=== PATIENT | male | born 1960 | race Caucasian/White ===

== ENCOUNTER → 2016-03-07 | Outpatient (CLI) | payer MEDICARE ==
[2016-03-07 11:07] VITALS: BP 135/74; PULSE 56; TEMP 98.2; BMI 36.8
== END | disposition home or self-care (01) ==
LOC: BARWHC3 09:51
PROVIDERS: ATTEND Surgery
DX: Z48.815 Encounter for surgical aftercare following surgery on the digestive system (principal); R13.10 Dysphagia, unspecified; Z98.84 Bariatric surgery status
CPT/HCPCS: 74220; 99201; 99202

== ENCOUNTER → 2016-03-07 | Outpatient (CLI) | payer MEDICARE ==
--- NOTE | 2016-03-07 10:06 | FL ---
EXAMINATION TYPE: FL barium swallow DATE OF EXAM: 03/07/2016 9:49 AM COMPARISON: NONE HISTORY: Dysphasia sticking in the epigastric region, burning and distal esophagus TECHNIQUE: Single contrast esophagram with attention to the LAP-BAND FINDINGS: There is moderate hesitancy of contrast passing to the level of lap band. Severe complete o bstruction is not identified. Lap band position appears normal. There appear to be some narrowing of the duodenum on images obtained near the end of the examination. Slight delay however demonstrates op ening of the duodenum. The stomach is otherwise not evaluated. IMPRESSION: 1. Narrowing through the level of the lap band with moderate hesitancy. Patient indicates this is of the level of discomfort which had symptoms produced during passage of contrast. No complete obstructi on is evident.
--- NOTE | 2016-03-07 12:23 | P.BASOAP ---
Subjective Principal diagnosis: Dysphagia Patient has had increased complaints of dysphagia recently. Mild abdominal discomfort at times. He has not been seen in the bariatric clinic for many years. At his last visit it appears that he had 2.8 mL of fluid in his band. Today's upper GI shows mild hesitancy at the band site. No prolapse or erosion seen. There is some slow passage through the duodenum as well. Objective - Exam Abdomen: Soft, nontender, nondistended Assessment/Plan (1) Dysphagia Narrative/Plan: The patient I discussed the esophagram results. Recommend upper endoscopy back home. The band will be loosened at this time. Follow-up in the clinic in 1-2 months.The patient's lap band port was palpated. The site was aseptically prepped. 1% lidocaine was infiltrated into the subcutaneous tissues through a diabetic syringe. The Ponce needle was advanced into the port. Aspiration took place. A total of 1 ml of fluid was evacuated. Pressure was held and a sterile dressing was applied. Plan: Date: Initial Weight: Initial BMI: Current Weight: Current BMI: Type of Surgery: Total Volume in Band: Previous Volume: Volume Removed: Volume Added: Band Size:
== END | disposition home or self-care (01) ==
LOC: RADFLWHC 09:02
PROVIDERS: ATTEND Surgery
DX: R13.10 Dysphagia, unspecified (principal); K22.2 Esophageal obstruction
CPT/HCPCS: 74220

== ENCOUNTER 2016-06-17 06:44 | Inpatient (IN) | payer MEDICARE ==
[2016-06-13 15:20] VITALS: BMI 36.6
[~2016-06-17 06:44] MED LIST: DEXAMETHASONE SOD PHOSPHATE 10 MG/ML 1 ML VIAL IV ONE; ENOXAPARIN 40 MG/0.4 ML SYRINGE SQ ONE; LACTATED RINGERS 1,000 ML IV SCH; LIDOCAINE 1% 20 ML VIAL (10MG/ML) FOR IV START INTRADERMA PRN; MIDAZOLAM 2 MG/2 ML VIAL IV PRN; ONDANSETRON 4 MG/2 ML VIAL IVP ONE; SCOPOLAMINE 1.5MG/72HR PATCH TRANSDERM ONE; ceFAZolin 2 GM in SODIUM CHLORIDE 0.9% 100 ML IVPB ONE
--- NOTE | 2016-06-17 08:49 | P.GSHP ---
History of Present Illness H&P Date: 06/17/16 Chief Complaint: Band intolerance, abdominal pain Patient here today with complaints of worsening abdominal pain. His pain is mostly at his upper abdominal port site from his previous lap band. He has chronic reflux and intermittent episodes of vomiting. The patient I discussed the options and have decided to take his band out at this point. He did have initially good success with weight loss but lately has gained weight back despite the band in place. Past Medical History Past Medical History: Coronary Artery Disease (CAD), Hyperlipidemia, Hypertension, Myocardial Infarction (non Q-wave), Osteoarthritis (OA) Additional Past Medical History / Comment(s): ARTHRITIS KNEES- USES CANE PRN. Last Myocardial Infarction Date:: 1997 History of Any Multi-Drug Resistant Organisms: None Reported Past Surgical History: Bariatric Surgery, Heart Catheterization, Hernia Repair Additional Past Surgical History / Comment(s): heart cath 1997 ,lapband surgery 2003, umbilical hernia repair 2004 Past Anesthesia/Blood Transfusion Reactions: No Reported Reaction, Motion Sickness Additional Past Anesthesia/Blood Transfusion Reaction / Comment(s): STATES VERY ANXIOUS WHEN HE COMES FOR SURGERY- LEFT HOSPITAL PRIOR TO SURGERY DUE TO ANXIETY. Past Psychological History: Anxiety, Depression Smoking Status: Never smoker Past Alcohol Use History: Rare Past Drug Use History: None Reported - Past Family History Father Family Medical History: Cancer Additional Family Medical History / Comment(s): MESOTHELIOMA Medications and Allergies Home Medications Medication Instructions Recorded Confirmed Type Aspirin 81 mg PO DAILY 03/07/16 06/13/16 History Atenolol 100 tab PO DAILY 03/07/16 06/13/16 History Cholecalciferol [Vitamin D3] 5,000 tab PO DAILY 03/07/16 06/13/16 History FLUoxetine HCL [PROzac] 80 tab PO DAILY 03/07/16 06/13/16 History Hydrochlorothiazide 12.5 tab PO DAILY 03/07/16 06/13/16 History Potassium Chloride [Klor-Con 10] 10 meq PO DAILY 03/07/16 06/13/16 History Simvastatin [Zocor] 40 mg PO DAILY 03/07/16 06/13/16 History hydrALAZINE HCL [Apresoline] 50 tab PO BID 03/07/16 06/13/16 History ALPRAZolam [Xanax] 0.25 mg PO BID PRN 06/13/16 06/13/16 History Dicyclomine [Bentyl] 20 mg PO QID PRN 06/13/16 06/13/16 History Losartan Potassium [Cozaar] 100 mg PO DAILY 06/13/16 06/13/16 History Naproxen Sodium [Aleve] 220 mg PO BID PRN 06/13/16 06/13/16 History Omeprazole [PriLOSEC] 20 mg PO AC-BRKFST 06/13/16 06/13/16 History Allergies Allergy/AdvReac Type Severity Reaction Status Date / Time No Known Allergies Allergy Verified 06/13/16 14:50 Surgical - Exam Vital Signs Temp Pulse Resp BP Pulse Ox 98 F 59 L 18 135/71 99 06/17/16 08:19 06/17/16 08:19 06/17/16 08:19 06/17/16 08:19 06/17/16 08:19 Physical exam: General: Well-developed, well-nourished HEENT: Normocephalic, sclerae nonicteric Abdomen: Nontender, nondistended Extremities: No edema Neuro: Alert and oriented Assessment and Plan (1) Dysphagia Narrative/Plan: She will proceed with lap band removal. Risks of bleeding, infection, bowel injury, possible findings of gastric prolapse, hernia were discussed. He understands and wishes to proceed. Status: Acute
[2016-06-17 08:56] LABS: Basophils # (A) 0.1 k/uL (0-0.2); Basophils % (A) 1 %; CH 30.8; CHCM 33.6; Eosinophils # (A) 0.3 k/uL (0-0.7); Eosinophils % (A) 3 %; HCT 40.3 % (39.0-53.0); HDW 2.36; HGB 13.4 gm/dL (13.0-17.5); Luc # (Auto) 0.24; Luc % (Auto) 3; Lymphocytes # (A) 2.2 k/uL (1.0-4.8); Lymphocytes % (A) 27 %; MCH 30.6 pg (25.0-35.0); MCHC 33.2 g/dL (31.0-37.0); MCV 92.1 fL (80.0-100.0); Mean Platelet Volume 6.9; Monocytes # (A) 0.8 k/uL (0-1.0); Monocytes % (A) 10 %; Neutrophils # (A) 4.8 k/uL (1.3-7.7); Neutrophils % (A) 57 %; RBC 4.38 m/uL (4.30-5.90); RDW 13.1 % (11.5-15.5); WBC 8.4 k/uL (3.8-10.6)
[2016-06-17 09:16] LABS: Anion Gap 9 mmol/L; Blood Urea Nitrogen 30 mg/dL (9-20); Calcium 9.8 mg/dL (8.4-10.2); Carbon Dioxide 26 mmol/L (22-30); Chloride 106 mmol/L (98-107); Glucose 96 mg/dL (74-99); Non-African American GFR(MDRD) >60 (>60 ml/min/1.73 sqM); Potassium 4.5 mmol/L (3.5-5.1); Sodium 141 mmol/L (137-145)
[2016-06-17] MEDS ORDERED: PROPOFOL 10 MG/ML 20 ML VIAL IV ONE (09:25)
[2016-06-17] MEDS ORDERED: LIDOCAINE 1% INJ 10MG/ML (20 ML MDV) ONE (09:25)
[2016-06-17] MEDS ORDERED: BUPIVACAIN-EPI 0.25%-1:200,000 30 ML VIAL SQ ONE (09:25)
[2016-06-17] MEDS ORDERED: ROCURONIUM BROMIDE 10 MG/ML 10 ML VIAL IV ONE (09:25)
[2016-06-17] MEDS ORDERED: SUCCINYLCHOLINE CHLORIDE 100 MG/5 ML SYR IV ONE (09:25)
[2016-06-17] MEDS ORDERED: GLYCOPYRROLATE 0.2 MG/ML 2 ML VIAL ONE (09:25)
[2016-06-17] MEDS ORDERED: NEOSTIGMINE 1 MG/ML 10 ML VIAL ONE (09:25)
[2016-06-17] MEDS ORDERED: MIDAZOLAM 2 MG/2 ML VIAL ONE (09:25)
[2016-06-17] MEDS ORDERED: PHENYLEPHRINE-0.9% NACL SYG 1 MG/10 ML SYRINGE ONE (09:25)
[2016-06-17] MEDS ORDERED: fentaNYL (PF) 50 MCG/ML 2 ML AMP ONE (09:25)
[2016-06-17] MEDS ORDERED: ePHEDrine 50 MG/ML 1 ML AMP ONE (09:25)
[2016-06-17] MEDS ORDERED: LACTATED RINGERS 1,000 ML IV ONE (10:16)
[2016-06-17] MEDS ORDERED: ACETAMINOPHEN TAB 325 MG TAB PO PRN (10:47)
[2016-06-17] MEDS ORDERED: ONDANSETRON 4 MG/2 ML VIAL IVP PRN (10:47)
[2016-06-17] MEDS ORDERED: NALOXONE 0.4 MG/ML 1 ML VIAL IV PRN (10:47)
[2016-06-17] MEDS ORDERED: HYDROcodone/APAP 5-325MG 1 EACH TAB PO PRN (10:47)
--- NOTE | 2016-06-17 10:50 | P.PCN ---
Date of Procedure: 06/17/16 Procedure(s) Performed: PREOPERATIVE DIAGNOSIS: Band intolerance/abdominal pain POSTOPERATIVE DIAGNOSIS: Same PROCEDURE: Laparoscopic lap band removal SURGEON: Amanda EBL: Minimal ANESTHESIA: General COMPLICATIONS: None OPERATIVE PROCEDURE: The patient was brought and placed on the operating room table in the supine position. The patient was placed under general anesthesia at that time. The patient was then placed in lithotomy. The abdomen was prepped and draped in the usual sterile fashion. The previous port incision was localized and then incised using a scalpel. The port was easily excised using electrocautery. Entrance into the peritoneal cavity occurred using a 5 mm optical trocar through the old trocar entrance site. Insufflation took place to 15 mmHg. A right subxiphoid 5 mm trocar was placed. This was then removed and the medium Jose hook was used to elevate the left lobe of the liver anteriorly. An additional 5 mm trocar was placed under direct visualization in the left lateral upper quadrant. The original 5 mm trocar was switched to a 15 mm trocar. A additional 5 mm trocar was placed in the right upper quadrant under direct dilatation. There were adhesions to the band in the buccal that were lysed using both the LigaSure and electrocautery. The band was then cut using the laparoscopic sugey. The band was then removed easily in 2 portions through the 15 mm trocar site. The stomach itself was inspected and revealed no evidence of erosion or prolapse. The trochars were removed. The fascia at the 15 mm site was closed using a [id number] 0 Vicryl stitch. The subcutaneous tissues at the port site was closed using a 3- 0 Vicryl suture. The skin at all 4 incision sites were closed using 4-0 Monocryl sutures. Steri-Strips and sterile dressings were then applied. DISPOSITION: Stable to recovery room
[2016-06-17] MEDS: HYDROmorphone 1 MG/ML 1 ML SYRINGE IVP PRN ×4 (11:05→21:04)
[2016-06-17] MEDS: D5-0.45% NACL WITH KCL 20MEQ/L 1,000 ML IV SCH ×2 (13:20→21:05)
[2016-06-17] MEDS ORDERED: ALPRAZolam 0.25 MG TAB PO PRN (15:03)
[2016-06-17] MEDS: HEPARIN SODIUM,PORCINE 5,000 UNIT/ML 1 ML VIAL SQ SCH ×2 (16:30→23:37)
--- NOTE | 2016-06-17 17:19 | CONS ---
DATE OF CONSULTATION: REASON FOR CONSULTATION: Recommendations regarding antihypertensive medications and perioperative complication management. Patient is a pleasant 56-year-old gentleman who was admitted for lap band removal, as he did not tolerate the procedure very well. Patient was having dysphagia. Patient underwent the procedure and I saw him postoperatively. Patient denied any fever or chills, nausea or vomiting, dysuria. REVIEW OF SYSTEMS: CONSTITUTIONAL: No fever, no malaise, no fatigue. HEENT: No recent visual problems or hearing problems. Denied any sore throat. CARDIOVASCULAR: No chest pain, orthopnea, PND, no palpitations, no syncope. PULMONARY: No shortness of breath, no cough, no hemoptysis. GASTROINTESTINAL: No diarrhea, no nausea, no vomiting, no abdominal pain. Normoactive bowel sounds. NEUROLOGICAL: No headaches, no weakness, no numbness. HEMATOLOGICAL: Denies any bleeding or petechiae. GENITOURINARY: Denies any burning micturition, frequency, or urgency. MUSCULOSKELETAL/RHEUMATOLOGICAL: Denies any joint pain, swelling, or any muscle pain. ENDOCRINE: Denies any polyuria or polydipsia. The rest of the 14 point review of systems is negative. Home medications include: 1. Hydralazine. 2. Simvastatin. 3. Potassium chloride. 4. Prilosec. 5. Naproxen. 6. Losartan hydrochlorothiazide. 7. Fluoxetine. 8. Dicyclomine. 9. Cholecalciferol. 10. Atenolol. 11. Aspirin. 12. Alprazolam. 13. Hydrocodone/acetaminophen. Past medical history is significant for: 1. Coronary artery disease. 2. Hyperlipidemia. 3. Hypertension. 4. Myocardial infarction in the past. 5. Osteoarthritis. 6. Bariatric surgery. 7. Hernia repair. 8. Motion sickness. 9. Anxiety. 10. Depression. SOCIAL HISTORY: Mesothelioma in the family. PHYSICAL EXAMINATION: VITAL SIGNS: Temperature 98.4, pulse of 71, respiratory rate of 15. Blood pressure is 121/85. Saturating at 99% on 2 L of oxygen by nasal cannula. GENERAL: The patient is alert and oriented x3, not in any acute distress. Well developed, well nourished. HEENT: Pupils are round and equally reacting to light. EOMI. No scleral icterus. No conjunctival pallor. Normocephalic, atraumatic. No pharyngeal erythema. No thyromegaly. CARDIOVASCULAR: S1 and S2 present. No murmurs, rubs, or gallops. PULMONARY: Chest is clear to auscultation, no wheezing or crackles. ABDOMEN: Soft, nontender, nondistended, normoactive bowel sounds. No palpable organomegaly. MUSCULOSKELETAL: No joint swelling or deformity. EXTREMITIES: No cyanosis, clubbing, or pedal edema. NEUROLOGICAL: Gross neurological examination did not reveal any focal deficits. SKIN: No rashes. LABORATORY DATA: CBC and CMP essentially within normal limits. ASSESSMENT AND PLAN: 1. Postoperative day zero, lap band removal. Management as per primary service, Dr. Patel. 2. Hypertension, for which I will go ahead and continue with beta dee but hold off on hydrochlorothiazide and Losartan to prevent any perioperative hypotension and related issues. 3. History of myocardial infarction. Continue with simvastatin and beta dee. 4. Hyperlipidemia. Continue with simvastatin. 5. Depression. Continue fluoxetine. No further recommendation from medicine perspective. Will sign off at this point of time. Patient may resume all his antihypertensive medications upon discharge. Will continue to follow the patient on an as-needed basis. Thank you for letting me participate in this patient's care.
[2016-06-17] MEDS: DOCUSATE 100 MG CAP PO SCH (21:05)
[2016-06-18] MEDS: HYDROmorphone 1 MG/ML 1 ML SYRINGE IVP PRN (04:47)
[2016-06-18] MEDS: DOCUSATE 100 MG CAP PO SCH (08:26)
[2016-06-18 08:36] VITALS: BP 160/74; PULSE 60; RESP 15; TEMP 97.8
[2016-06-18] MEDS: HEPARIN SODIUM,PORCINE 5,000 UNIT/ML 1 ML VIAL SQ SCH (08:57)
[2016-06-18] MEDS ORDERED: ATENOLOL 50 MG TAB PO SCH (09:00)
[2016-06-18] MEDS ORDERED: ASPIRIN 81 MG CHEW PO SCH (09:00)
[2016-06-18] MEDS ORDERED: PANTOPRAZOLE 40 MG/10 ML VIAL IV SCH (09:00)
[2016-06-18] MEDS ORDERED: ATORVASTATIN 20 MG TAB PO SCH (09:00)
[2016-06-18] MEDS ORDERED: FLUoxetine HCL 20 MG CAP PO SCH (09:00)
[2016-06-18] MEDS: D5-0.45% NACL WITH KCL 20MEQ/L 1,000 ML IV SCH (09:34)
--- NOTE | 2016-06-18 10:55 | P.DS ---
Providers Date of admission: 06/17/16 06:44 Expected date of discharge: 06/18/16 Attending physician: Tung Patel Consults: 06/17/16 10:47 Consult Physician Routine Consulting Provider: Too Alfonso Consult Reason/Comments: Medical management Do you want consulting provider notified?: Yes Primary care physician: Stated None Hospital Course: Is a 56-year-old male underwent laparoscopic removal of LAP-BAND system yesterday. Patient did quite well. Please see chart for details. Procedures: Laparoscopic removal of LAP-BAND system Patient Condition at Discharge: Good Plan - Discharge Summary New Discharge Prescriptions: Hydrocodone/Acetaminophen [Wilson 5-325] 1 - 2 each PO Q4HR PRN #30 tab PRN Reason: pain Discharge Medication List Aspirin 81 mg PO DAILY 03/07/16 [History] Atenolol 100 mg PO DAILY 03/07/16 [History] Cholecalciferol [Vitamin D3] 5,000 units PO DAILY 03/07/16 [History] FLUoxetine HCL [PROzac] 80 mg PO DAILY 03/07/16 [History] Hydrochlorothiazide 12.5 mg PO DAILY 03/07/16 [History] Potassium Chloride [Klor-Con 10] 10 meq PO DAILY 03/07/16 [History] Simvastatin [Zocor] 40 mg PO DAILY 03/07/16 [History] hydrALAZINE HCL [Apresoline] 50 mg PO BID 03/07/16 [History] ALPRAZolam [Xanax] 0.25 mg PO BID PRN 06/13/16 [History] Dicyclomine [Bentyl] 20 mg PO QID PRN 06/13/16 [History] Losartan Potassium [Cozaar] 100 mg PO DAILY 06/13/16 [History] Naproxen Sodium [Aleve] 220 mg PO BID PRN 06/13/16 [History] Omeprazole [PriLOSEC] 20 mg PO AC-BRKFST 06/13/16 [History] Hydrocodone/Acetaminophen [Wilson 5-325] 1 - 2 each PO Q4HR PRN #30 tab 06/17/16 [Rx] Follow up Appointment(s)/Referral(s): Tung Patel MD [Medical Doctor] - As Needed
== END 2016-06-18 13:15 | disposition home or self-care (01) | DRG 989 ==
LOC: 2ORWHC 06:44 → 3SUR 11:04
PROVIDERS: ADMIT Surgery; ATTEND Surgery
PROC: 0DP64CZ Removal of Extraluminal Device from Stomach, Percutaneous Endoscopic Approach (ICD-10-PCS; principal; 2016-06-17 09:30)
DX: K95.09 Other complications of gastric band procedure (principal); I10 Essential (primary) hypertension; R13.10 Dysphagia, unspecified; F32.9 Major depressive disorder, single episode, unspecified; E78.5 Hyperlipidemia, unspecified; F41.9 Anxiety disorder, unspecified; I25.10 Atherosclerotic heart disease of native coronary artery without angina pectoris; I25.2 Old myocardial infarction; K21.9 Gastro-esophageal reflux disease without esophagitis; M19.90 Unspecified osteoarthritis, unspecified site; Z79.899 Other long term (current) drug therapy; Z79.82 Long term (current) use of aspirin
CPT/HCPCS: 80048; 85025; 93005

== ENCOUNTER → 2016-06-28 | Outpatient (CLI) | payer MEDICARE ==
[2016-06-28 13:26] VITALS: BP 135/74; PULSE 61; RESP 20; TEMP 98.4; BMI 38.6
--- NOTE | 2016-06-28 14:59 | P.BASOAP ---
Subjective Principal diagnosis: Post lap band removal Patient doing well at this time. He underwent recent removal of his lap band. He was having complaints of upper abdominal pain and nausea along with intermittent vomiting. He states his symptoms have resolved since then. He does have a small amount of swelling at his port site and has developed a rash at all of his incision sites related to the Steri-Strips. Denies fevers or chills. No significant drainage from the incisions. Objective - Vital Signs Vital signs: Vital Signs Temp 98.4 F 06/28/16 13:21 Pulse 61 06/28/16 13:21 Resp 20 06/28/16 13:21 BP 135/74 06/28/16 13:21 Pulse Ox Intake & Output 06/27/16 06/28/16 06/28/16 18:59 06:59 18:59 Weight 118.614 kg - Exam Abdomen: Soft, nondistended, small seroma noted, rash at all incision sites, no evidence of active infection. Assessment/Plan (1) Dysphagia Narrative/Plan: Continue observation. Benadryl orally and steroid cream recommended. Follow- up with me on an as-needed basis at this point. Plan: Date: 06/28/16 Initial Weight: 118.614 kg Initial BMI: 38.6 Current Weight: 118.614 kg Current BMI: 38.6 Type of Surgery: Total Volume in Band: 1.6 Previous Volume: Volume Removed: Volume Added: Band Size:
== END ==
LOC: BARWHC3 13:02
PROVIDERS: ATTEND Surgery
DX: R13.10 Dysphagia, unspecified (principal)
CPT/HCPCS: 99211

== ENCOUNTER → 2016-10-05 | Outpatient (CLI) | payer MEDICARE ==
[2016-10-05 15:50] LABS: Appearance,Urine Clear (Clear); Bilirubin,Urine Negative (Negative); Glucose,Urine (UA) Negative (Negative); Ketones,Urine Negative (Negative); Leukocyte Esterase,Urine Negative (Negative); Nitrite,Urine Negative (Negative); PH, Urine 6.5 (5.0-8.0); Protein,Urine Negative (Negative); Specific Gravity,Urine 1.016 (1.001-1.035); UA Billing (MACRO vs. MICRO) CHEM; Urobilinogen,Urine <2.0 mg/dL (<2.0)
[2016-10-05 16:09] LABS: INR 1.1 (<1.2)
[2016-10-05 16:12] LABS: ALT 52 U/L (21-72); AST 35 U/L (17-59); Alkaline Phosphatase 84 U/L (38-126); Anion Gap 11 mmol/L; Blood Urea Nitrogen 27 mg/dL (9-20); Calcium 9.9 mg/dL (8.4-10.2); Carbon Dioxide 27 mmol/L (22-30); Chloride 104 mmol/L (98-107); Glucose 101 mg/dL (74-99); Non-African American GFR(MDRD) >60 (>60 ml/min/1.73 sqM); Potassium 4.7 mmol/L (3.5-5.1); Sodium 142 mmol/L (137-145); Total Bilirubin 0.6 mg/dL (0.2-1.3); Total Protein 7.9 g/dL (6.3-8.2)
[2016-10-05 16:17] LABS: CH 30.3; CHCM 32.9; HCT 41.3 % (39.0-53.0); HDW 2.49; HGB 14.1 gm/dL (13.0-17.5); MCH 31.6 pg (25.0-35.0); MCHC 34.1 g/dL (31.0-37.0); MCV 92.6 fL (80.0-100.0); Mean Platelet Volume 7.4; RBC 4.46 m/uL (4.30-5.90); RDW 13.5 % (11.5-15.5)
== END | disposition home or self-care (01) ==
LOC: LABPAT 15:12
PROVIDERS: ATTEND Orthopaedic Surgery
DX: Z01.812 Encounter for preprocedural laboratory examination (principal)
CPT/HCPCS: 80053; 81003; 85027; 85610; 85730; 87070

== ENCOUNTER 2016-10-25 09:29 | Inpatient (IN) | payer MEDICARE ==
[2016-10-12 13:59] VITALS: BMI 40.7
[~2016-10-25 09:29] MED LIST changes: +ACETAMINOPHEN TAB 500 MG TAB PO ONE; -ENOXAPARIN 40 MG/0.4 ML SYRINGE SQ ONE; +HYDROmorphone 1 MG/ML 1 ML SYRINGE IVP PRN; +MELOXICAM 7.5 MG TAB PO ONE; +ROPIVACAINE 246.25 MG, EPINEPHrine 0.5 MG, KETOROLAC 30 MG, cloNIDine HCL/PF 80 MCG, WA... MISCELLANE ONE; +TRANEXAMIC ACID 1,000 MG in SODIUM CHLORIDE 0.9% 100 ML IVPB ONE; -ceFAZolin 2 GM in SODIUM CHLORIDE 0.9% 100 ML IVPB ONE; +ceFAZolin 3 GM in SODIUM CHLORIDE 0.9% 100 ML IVPB ONE; +fentaNYL (PF) 50 MCG/ML 20 ML VIAL IVP PRN
[2016-10-25 10:44] VITALS: RESP 16
[2016-10-25] MEDS ORDERED: fentaNYL (PF) 50 MCG/ML 2 ML AMP IVP ONE (11:15)
[2016-10-25] MEDS ORDERED: ROPIVACAINE 1,100 MG, SODIUM CHLORIDE 0.9% 330 ML MISCELLANE PRN ×2 (11:51)
--- NOTE | 2016-10-25 11:52 | P.ONQ ---
Anesthesiology Proc Note - PNB - Peripheral Nerve Block Performed Left Adductor Canal Time Out Performed: Yes (11:10) Indication: Acute Post-Operative Pain, Requested by physician (Dr Christianson) Sedation Type: Sedate with meaningful contact maintained Preparation: Sterile Dressing Position: Supine Catheter: Indwelling Needle Types: Other (see comment) (kristina) Needle Size: 100mm (4") Needle Gauge: 18 Technique: Ultrasound Injectate: 0.5% Ropivacaine (see comment for volume) (22cc) Blood Aspirated: No Pain Paresthesia on Injection Noted: No Resistance on Injection: Normal Events: Uneventful and Well Tolerated
[2016-10-25] MEDS ORDERED: MAGNESIUM HYDROXIDE 2,400 MG/10 ML CUP PO PRN (13:13)
[2016-10-25] MEDS ORDERED: BISACODYL 10 MG SUPP RECTAL PRN (13:13)
[2016-10-25] MEDS ORDERED: DIAZEPAM 5 MG TAB PO PRN ×2 (13:13)
[2016-10-25] MEDS ORDERED: ONDANSETRON 4 MG/2 ML VIAL IVP PRN (13:13)
[2016-10-25] MEDS ORDERED: HYDROmorphone 1 MG/ML 1 ML SYRINGE IVP PRN ×2 (13:13)
[2016-10-25] MEDS ORDERED: hydrOXYzine PAMOATE 25 MG CAP PO PRN (13:13)
[2016-10-25] MEDS ORDERED: NALOXONE 0.4 MG/ML 1 ML VIAL IV PRN (13:13)
[2016-10-25] MEDS ORDERED: NA PHOS,M-B/NA PHOS,DI-BA 133 ML ENEMA RECTAL PRN (13:13)
[2016-10-25] MEDS ORDERED: HYDROcodone/APAP 5-325MG 1 EACH TAB PO PRN (13:13)
[2016-10-25] MEDS ORDERED: GLYCOPYRROLATE 0.2 MG/ML 2 ML VIAL ONE (13:25)
[2016-10-25] MEDS ORDERED: TRANEXAMIC ACID 1,000 MG/10 ML VIAL ONE (13:25)
[2016-10-25] MEDS ORDERED: SODIUM CHLORIDE 0.9% 100 ML BAG ONE (13:25)
[2016-10-25] MEDS ORDERED: LIDOCAINE 1% INJ 10MG/ML (20 ML MDV) ONE (13:25)
[2016-10-25] MEDS ORDERED: fentaNYL (PF) 50 MCG/ML 2 ML AMP ONE (13:25)
[2016-10-25] MEDS ORDERED: PROPOFOL 10 MG/ML 20 ML VIAL IV ONE (13:25)
[2016-10-25] MEDS ORDERED: KETAMINE 10 MG/ML 20 ML VIAL ONE (13:25)
[2016-10-25] MEDS ORDERED: MIDAZOLAM 2 MG/2 ML VIAL ONE (13:25)
[2016-10-25] MEDS ORDERED: ePHEDrine 50 MG/ML 1 ML AMP ONE (13:25)
[2016-10-25] MEDS ORDERED: LACTATED RINGERS 1,000 ML IV ONE (13:59)
[2016-10-25] MEDS ORDERED: ceFAZolin 3,000 MG in SODIUM CHLORIDE 0.9% IRRIGATIO 3,000 ML IRRIGATION ONE (14:00)
--- NOTE | 2016-10-25 16:03 | XR ---
EXAMINATION TYPE: XR knee limited LT DATE OF EXAM: 10/25/2016 COMPARISON: NONE HISTORY: Postop knee replacement TECHNIQUE: 2 view left knee FINDINGS: Tibial and femoral components are present. Postsurgical changes are within the soft tissues . IMPRESSION: 1. No acute fractures post knee replacement
--- NOTE | 2016-10-25 16:30 | P.OP ---
Date of Procedure: 10/25/16 Preoperative Diagnosis: Severe osteoarthritis left knee Postoperative Diagnosis: Severe osteoarthritis left knee Procedure(s) Performed: Left total knee arthroplasty Implants: [employer]hew Oxinium femoral component size 6, left Peters [employer] Nephew Tanya II left nonporous tibial baseplate size 6 [employer] Nephew size 9 mm Legion XLPE dished articular insert, size 5-6 [employer]hew Tanya II resurfacing patellar component, 32 mm All components were cemented using Nicko bone cement.. The articulation is ceramic on polyethylene. Anesthesia: spinal Surgeon: Jim Christianson [employer] Dispatcher #1: Ivory Rebollar Estimated Blood Loss (ml): 50 Pathology: other (Bone and cartilage) Condition: stable Disposition: PACU Indications for Procedure: After failure of conservative treatment we discussed the surgical and nonsurgical treatment options at length. Patient wishes to proceed with a total knee arthroplasty. Complications specific to this procedure were discussed at length, including but not limited to infection, bleeding, stiffness , and nerve injury. Patient is aware of all these complications and informed consent was obtained Operative Findings: The operative findings are consistent with severe osteoarthritis of the left knee Description of Procedure: Patient was seen in the preoperative area consent was reviewed and operative site was marked with a skin marker. An adductor canal pain catheter was placed by anesthesia in the preoperative area. Patient was then brought to the operating room and given preoperative antibiotics intravenously. A spinal anesthetic was administered by the anesthesia department. A tourniquet was placed on the upper thigh and the lower extremity was prepped and draped in usual sterile fashion. A gram of transexamic acid was given. A universal timeout was then performed which confirmed the patient's name, surgical site, ALLERGIES, and consent. The lower extremity was then exsanguinated and tourniquet was inflated to 350 mmHg. A standard and anterior midline approach to the knee was performed. The skin and subcutaneous tissue was dissected down to the patellar tendon. A medial parapatellar arthrotomy was then performed. The knee was then extended, the patellar was everted, and the knee was again flexed. Anterior horns of both menisci were excised, and a release was performed to the posterior medial aspect of the knee. On gross visual inspection, there was complete loss of articular cartilage in the medial and patellofemoral joint spaces. There was also significant cartilage damage in the lateral compartment. There were multiple periarticular osteophytes which were then removed with a Ronguer. The femoral canal was then opened with the appropriate drill, and the intramedullary femoral cutting guide was then placed and set for 4 of valgus. The distal femoral cutting block was then pinned in place, and the distal femur was then cut. The cutting block was then removed and the cut was checked for flatness. Next, the sizing guide was then placed and set for 3 external rotation based off of the epicondylar axis and Whitesides line. After the femur was sized, the appropriate 4-in-1 cutting block was then pinned in place. The anterior condyles were cut without notching. The posterior and chamfer cuts were performed while protecting the collateral ligaments. The cutting block was then removed, and the femoral canal was plugged with autologous bone. Attention was then directed to the tibia. The remaining ACL was removed with a Ronguer, and the tibia was then gently subluxed forward with a large bent knee retractor. Any remaining menisci was excised. The posterior lateral corner was cauterized in order to cauterize the lateral geniculate artery. The extra medullary tibial cutting guide was then placed, set for the appropriate rotation , slope, and depth of resection. The proximal tibia cutting guide was then pinned in place. Proximal tibia was then cut and sized. Next trials were then placed with the appropriate-sized insert. The knee was able to fully extend and flex to 130 and was stable throughout all range of motion. The knee was then extended, patella everted. Patella was then measured, and then using an osteotomy guide, the patella was cut at the appropriate level. The patella was then measured and drilled and the patella trial was then placed. The knee was then taken through range of motion with the patella trial and the patella tracked normally. The knee was then extended patella trial was then removed and the patella was everted. Knee was then flexed and lug holes were drilled through the femoral trial and the femoral trial was then removed. The tibial was then exposed, and the tibial broach guide was then pinned in place after it was set for the appropriate rotation to allow for the most coverage without overhang. The tibia was then reamed and broached. The cut surfaces of bone were then irrigated with pulsatile lavage. The posterior structures were injected with the ropivacaine solution. The knee was also irrigated with Irrisept solution. The components were then opened, the cement was mixed, and the components were then cemented in place. The cement was allowed to harden with the knee in full extension. While the cement was hardening, the remaining soft tissues were then injected with a ropivacaine solution, which consisted of 246.25 mg of ropivacaine, 0.5 mg of epinephrine, 30 mg of Toradol, 80 g of clonidine, and 48.45 mL of sterile water, for a total of 100 mL of fluid injected. After the cemented hardened. The tourniquet was released, and hemostasis was obtained. A second gram of transexamic acid was given. The knee was again irrigated. The knee was again taken through range of motion and found to be stable throughout all range of motion of 0-130 , and the patella tracked normally. The fascia was then closed with #2 strata fix suture. The subcutaneous tissue was closed with 3-0 Vicryl and 3-0 strata fix. Dermabond tape was used for the skin and placed with the knee in flexion. The patient was placed in a sterile dressing. Patient was then transferred to recovery room in stable condition. The medical office assistant instructor WADE Doe was required due the complexity surgery and the need for a skilled nursing surgical services director. She assisted in positioning, draping, retraction, and closure of the wound.
[2016-10-25] MEDS ORDERED: ALPRAZolam 0.25 MG TAB PO PRN (17:33)
[2016-10-25] MEDS ORDERED: DICYCLOMINE 20 MG TAB PO PRN (17:33)
[2016-10-25] MEDS: SODIUM CHLORIDE 0.9% 1,000 ML IV SCH (18:32)
[2016-10-25] MEDS: HYDROcodone/APAP 5-325MG 1 EACH TAB PO PRN (19:41)
[2016-10-25] MEDS: SENNOSIDES-DOCUSATE SODIUM 1 EACH TAB PO SCH (20:13)
[2016-10-25] MEDS: ASPIRIN 325 MG TAB PO SCH (20:13)
[2016-10-25] MEDS: hydrALAZINE HCL 25 MG TAB PO SCH (20:13)
[2016-10-25] MEDS: ceFAZolin 2 GM in SODIUM CHLORIDE 0.9% 100 ML IVPB SCH (20:13)
--- NOTE | 2016-10-25 23:04 | CONS ---
CONSULTATION DATE OF SERVICE: 10/25/2016 REASON FOR CONSULTATION: Advice regarding hypertension and other medical issues, requested by Orthopedic Surgery, Dr. Christianson. HISTORY OF PRESENT ILLNESS: This 56-year-old gentleman with a past medical history of CAD, GERD, hypertension, hyperlipidemia, being followed by an ESL PROFESSOR in the outpatient setting, underwent left total knee arthroplasty by Dr. Christianson. The patient apparently had a cardiac catheterization and is on medical treatment. The patient also had lap band insertion and removal by Dr. Patel. Currently patient is followed by a outboard motor inspector in [place]. Patient is doing fine; activities of daily living are excellent. There is no history of any fever, rigor, chills. No history of any chest pain, palpitations, shortness of breath. PAST MEDICAL HISTORY: 1. CAD. 2. Myocardial infarction. 3. Hypertension. 4. Hyperlipidemia. 5. History of DJD. MEDICATIONS: Medications prior to admission (home medications) include: 1. Hydralazine 25 mg p.o. b.i.d. 2. Zocor 40 mg p.o. daily. 3. Klor-Con 10 mEq p.o. daily. 4. Prilosec 20 mg p.o. at bedtime. 5. Aleve 220 mg b.i.d. 6. Toprol XL 50 mg p.o. daily. 7. Cozaar 100 mg p.o. daily. 8. Hydrocodone 1 to 2 tablets q.4 p.r.n. 9. Hydrochlorothiazide 25 mg p.o. daily. 10.Prozac 80 mg p.o. daily. 11.Bentyl 20 mg p.o. q.i.d. p.r.n. 12.Vitamin D3 5000 daily. 13.Aspirin 81 mg daily. 14.Xanax 0.25 b.i.d. p.r.n. ALLERGIES: ADHESIVE TAPE. FAMILY HISTORY: History of DVT, mesothelioma, cancer. SOCIAL HISTORY: No history of smoking. Occasional alcohol intake. REVIEW OF SYSTEMS: ENT: No diminished hearing. No diminished vision. CARDIOVASCULAR SYSTEM: As mentioned earlier. RESPIRATION: No cough, hemoptysis. GI: No nausea, vomiting. : No dysuria, retention. NERVOUS SYSTEM: No numbness or weakness. ALLERGY/IMMUNOLOGY: No asthma, hayfever. MUSCULOSKELETAL: As mentioned earlier. HEMATOLOGY/ONCOLOGY: No history of anemia. ENDOCRINE: No history of diabetes, hypothyroidism. CONSTITUTIONAL: As mentioned earlier. DERMATOLOGY: Negative. RHEUMATOLOGY: Negative. PSYCHIATRY: As mentioned earlier. PHYSICAL EXAMINATION: Patient is alert and oriented x3. Pulse is 79, blood pressure 129/65, respiration 16, temperature 97.9, pulse ox 94% on room air. HEENT: Conjunctivae normal. Oral mucosa moist. NECK: No jugular venous distention. No carotid bruit. No lymph node enlargement. CARDIOVASCULAR: S1, S2 muffled. No S3. No S4. No murmur or thrill. RESPIRATION: Breath sounds diminished at the bases. No rhonchi. No crackles. ABDOMEN: Soft, nontender. LEGS: Status post left knee arthroplasty. NERVOUS SYSTEM: No focal deficit. LABS: Glucose 101. ASSESSMENT: 1. Status post left total knee arthroplasty. 2. History of coronary artery disease. 3. Gastroesophageal reflux disease. 4. Hypertension. 5. Hyperlipidemia. 6. History of myocardial infarction. 7. History lap band surgery and removal. 8. Anxiety and depression. RECOMMENDATIONS AND DISCUSSION: In this 56-year-old gentleman who presented after surgery, at this time my recommendation is to continue current medication, continue symptomatic treatment. Home medication may be continued. Cardiac-cardoso the patient appears to be stable. DVT prophylaxis. Incentive spirometry. Patient may be asked to follow up with his primary physician closely. Will follow the patient closely with you. Thank you, Dr. Christianson, for letting us participate in the care this patient. Aspirin may be initiated when okay with Orthopedic Surgery. MMODL / IJN: [id number] /
[2016-10-26] MEDS: HYDROmorphone 1 MG/ML 1 ML SYRINGE IVP PRN ×3 (01:39→12:23)
[2016-10-26] MEDS: ceFAZolin 2 GM in SODIUM CHLORIDE 0.9% 100 ML IVPB SCH (04:27)
[2016-10-26 06:56] LABS: Basophils % (A) 0 %; CH 30.4; CHCM 32.8; Eosinophils % (A) 0 %; HCT 35.9 % (39.0-53.0); HDW 2.46; HGB 12.2 gm/dL (13.0-17.5); Luc # (Auto) 0.16; Luc % (Auto) 1; Lymphocytes # (A) 1.2 k/uL (1.0-4.8); Lymphocytes % (A) 7 %; MCH 31.5 pg (25.0-35.0); MCHC 33.9 g/dL (31.0-37.0); Mean Platelet Volume 7.4; Monocytes % (A) 6 %; Neutrophils # (A) 15.3 k/uL (1.3-7.7); Neutrophils % (A) 86 %; RBC 3.86 m/uL (4.30-5.90); RDW 13.1 % (11.5-15.5); WBC 17.8 k/uL (3.8-10.6); WBC (Perox) 18.59
[2016-10-26] MEDS: PANTOPRAZOLE 40 MG TABLET PO SCH (08:12)
[2016-10-26] MEDS: ASPIRIN 325 MG TAB PO SCH ×2 (08:12→20:54)
[2016-10-26] MEDS: CHOLECALCIFEROL 1,000 UNIT TAB PO SCH (08:13)
[2016-10-26] MEDS: ATORVASTATIN 20 MG TAB PO SCH (08:13)
[2016-10-26] MEDS: LOSARTAN 50 MG TAB PO SCH (08:13)
[2016-10-26] MEDS: hydrALAZINE HCL 25 MG TAB PO SCH ×2 (08:14→20:54)
[2016-10-26] MEDS: FLUoxetine HCL 20 MG CAP PO SCH (08:14)
[2016-10-26] MEDS: METOPROLOL SUCCINATE (ER) 50 MG TAB.ER.24H PO SCH (08:15)
[2016-10-26] MEDS: POTASSIUM CHLORIDE ER 10 MEQ TAB.ER.PRT PO SCH (08:15)
[2016-10-26] MEDS: MELOXICAM 7.5 MG TAB PO SCH (08:15)
[2016-10-26] MEDS: HYDROCHLOROTHIAZIDE 25 MG TAB PO SCH (08:17)
[2016-10-26] MEDS: HYDROcodone/APAP 5-325MG 1 EACH TAB PO PRN ×2 (08:17→14:35)
--- NOTE | 2016-10-26 08:52 | P.PN ---
Progress Note - Text The patient is status post left adductor canal catheter placement. The catheter was placed for postoperative pain control, status post total left arthroplasty. Ropivacaine 0.2% is infusing at 10 mLs per hour. The patient has no complaints of left lower extremity numbness or weakness. Patient's VAS score is 3 -10. Assessment: Patient's adductor canal catheter is in place and working appropriately. Plan: continue infusion and adjust it as needed.
--- NOTE | 2016-10-26 09:43 | P.PN ---
Subjective Principal diagnosis: Primary osteoarthritis left knee, status post left total knee arthroplasty This is a pleasant 56-year-old male who is status post left total knee arthroplasty. This is postoperative day #1. Patient is seen and evaluated at bedside with Dr. Jim Christianson. Patient states pain is well controlled and has no new complaints today. Objective - Vital Signs Vital signs: Vital Signs Temp 97 F L 10/26/16 07:00 Pulse 71 10/26/16 07:00 Resp 16 10/26/16 07:00 BP 145/85 10/26/16 07:00 Pulse Ox 96 10/26/16 07:00 Intake & Output 10/25/16 10/26/16 10/26/16 18:59 06:59 18:59 Intake Total 1851 1710 Output Total 50 1450 Balance 1801 260 Weight 127.006 kg Intake: IV 1851 Intake, IV Titration 100 Amount Lactated Ringers 1,000 ml 100 @ 20 mls/hr IV .Q24H HERMELINDA Rx#:[id number] Oral 1610 Output: Urine 1450 Estimated Blood Loss 50 Other: Voiding Method Indwelling Catheter - Exam Vital signs are stable. Patient is in no acute distress and is alert and oriented 3. Calf is soft and nontender. Incision is clean, dry, and intact. Neurovascular status intact. Patient has full foot and ankle motion. - Labs CBC & Chem 7: 10/26/16 06:39 Labs: Abnormal Lab Results - Last 24 Hours (Table) 10/26/16 Range/Units 06:39 WBC 17.8 H (3.8-10.6) k/uL RBC 3.86 L (4.30-5.90) m/uL Hgb 12.2 L (13.0-17.5) gm/dL Hct 35.9 L (39.0-53.0) % Neutrophils # 15.3 H (1.3-7.7) k/uL Assessment and Plan (1) Primary osteoarthritis of left knee Status: Acute (2) S/P total knee arthroplasty Status: Acute Plan: #1 Continue with routine postoperative care. #2 Anticoagulation with aspirin. #3 Physical therapy and CPM today. #4 Appreciate input from medicine. #5 Anticipate discharge home with home care likely or Monday
[2016-10-26 12:02] LABS: Basophils # (A) 0.1 k/uL (0-0.2); Basophils % (A) 0 %; CH 31.6; Eosinophils % (A) 0 %; HCT 35.5 % (39.0-53.0); HDW 2.44; HGB 11.6 gm/dL (13.0-17.5); Luc # (Auto) 0.23; Luc % (Auto) 2; Lymphocytes # (A) 1.5 k/uL (1.0-4.8); Lymphocytes % (A) 10 %; MCH 30.4 pg (25.0-35.0); MCHC 32.6 g/dL (31.0-37.0); MCV 93.4 fL (80.0-100.0); Monocytes # (A) 1.5 k/uL (0-1.0); Monocytes % (A) 10 %; Neutrophils # (A) 12.2 k/uL (1.3-7.7); Neutrophils % (A) 79 %; RDW 13.7 % (11.5-15.5); WBC 15.5 k/uL (3.8-10.6); WBC (Perox) 16.74
[2016-10-26 12:36] LABS: Appearance,Urine Clear (Clear); Bilirubin,Urine Negative (Negative); Glucose,Urine (UA) Negative (Negative); Ketones,Urine Negative (Negative); Leukocyte Esterase,Urine Negative (Negative); Nitrite,Urine Negative (Negative); PH, Urine 5.5 (5.0-8.0); Protein,Urine Negative (Negative); UA Billing (MACRO vs. MICRO) CHEM; Urobilinogen,Urine <2.0 mg/dL (<2.0)
[2016-10-26] MEDS: SODIUM CHLORIDE 0.9% 1,000 ML IV SCH (13:53)
[2016-10-26] MEDS: SENNOSIDES-DOCUSATE SODIUM 1 EACH TAB PO SCH (20:54)
--- NOTE | 2016-10-26 20:59 | PN ---
PROGRESS NOTE DATE OF SERVICE: 10/26/2016 This 56-year-old gentleman who was admitted after left knee arthroplasty had elevated WBC. Patient also complains of pain. No chest pain. No palpitation. No fever. PHYSICAL EXAMINATION: On exam, alert and oriented x3. Pulse 71, blood pressure 140/85, respiration 16, temperature 97 degrees, pulse ox 98% on room air. HEENT: Conjunctivae normal. NECK: No jugular venous distention. CARDIOVASCULAR SYSTEM: S1, S2 muffled. RESPIRATION: Breath sounds diminished at the bases. A few rhonchi. No crackles. ABDOMEN: Soft, non-tender. LEGS: No edema. No swelling. NERVOUS SYSTEM: No focal deficit. LABS: WBC 15.5, hemoglobin 11.6. ASSESSMENT: 1. Status post left total knee arthroplasty. 2. Increased white count, possibly reactive. 3. History of coronary artery disease. 4. Gastroesophageal reflux disease. 5. Hypertension. 6. Hyperlipidemia. 7. History of myocardial infarction. 8. History of lap band surgery and removal. 9. Anxiety, depression. RECOMMENDATIONS AND DISCUSSION: I recommend to continue current medication, continue with the monitoring and symptomatic treatment. Otherwise, at this time I recommend incentive spirometry. Repeat labs. Monitor closely. Further recommendations to follow. If the WBC remains persistently elevated, chest x-ray may be recommended. MMODL / IJN: [id number] /
[2016-10-27] MEDS: HYDROcodone/APAP 5-325MG 1 EACH TAB PO PRN ×2 (02:13→13:48)
[2016-10-27 07:08] LABS: Basophils # (A) 0.1 k/uL (0-0.2); Basophils % (A) 1 %; CH 30.3; CHCM 32.8; Eosinophils # (A) 0.3 k/uL (0-0.7); Eosinophils % (A) 3 %; HCT 35.6 % (39.0-53.0); HDW 2.38; Luc # (Auto) 0.23; Luc % (Auto) 2; Lymphocytes # (A) 1.7 k/uL (1.0-4.8); Lymphocytes % (A) 16 %; MCH 31.3 pg (25.0-35.0); MCHC 33.7 g/dL (31.0-37.0); MCV 92.8 fL (80.0-100.0); Mean Platelet Volume 7.5; Monocytes # (A) 1.1 k/uL (0-1.0); Monocytes % (A) 10 %; Neutrophils # (A) 7.6 k/uL (1.3-7.7); Neutrophils % (A) 69 %; RBC 3.84 m/uL (4.30-5.90); RDW 13.2 % (11.5-15.5); WBC 11.1 k/uL (3.8-10.6); WBC (Perox) 12.23
[2016-10-27 07:23] VITALS: BP 119/67; PULSE 74; TEMP 97
[2016-10-27 07:25] LABS: Anion Gap 8 mmol/L; Blood Urea Nitrogen 24 mg/dL (9-20); Carbon Dioxide 23 mmol/L (22-30); Chloride 106 mmol/L (98-107); Glucose 131 mg/dL (74-99); Non-African American GFR(MDRD) >60 (>60 ml/min/1.73 sqM); Potassium 4.7 mmol/L (3.5-5.1); Sodium 137 mmol/L (137-145)
[2016-10-27] MEDS: ASPIRIN 325 MG TAB PO SCH (08:34)
[2016-10-27] MEDS: CHOLECALCIFEROL 1,000 UNIT TAB PO SCH (08:35)
[2016-10-27] MEDS: LOSARTAN 50 MG TAB PO SCH (08:35)
[2016-10-27] MEDS: FLUoxetine HCL 20 MG CAP PO SCH (08:35)
[2016-10-27] MEDS: METOPROLOL SUCCINATE (ER) 50 MG TAB.ER.24H PO SCH (08:36)
[2016-10-27] MEDS: ATORVASTATIN 20 MG TAB PO SCH (08:37)
[2016-10-27] MEDS: PANTOPRAZOLE 40 MG TABLET PO SCH (08:37)
[2016-10-27] MEDS: POTASSIUM CHLORIDE ER 10 MEQ TAB.ER.PRT PO SCH (08:37)
[2016-10-27] MEDS: HYDROCHLOROTHIAZIDE 25 MG TAB PO SCH (08:37)
--- NOTE | 2016-10-27 08:40 | P.DS ---
Providers Date of admission: 10/25/16 09:29 Expected date of discharge: 10/27/16 Attending physician: Jim Christianson Consults: 10/25/16 13:42 Consult Physician Routine Consulting Provider: Too Aflonso Consult Reason/Comments: medical management Do you want consulting provider notified?: Yes Primary care physician: Stated None - Discharge Diagnosis(es) (1) Primary osteoarthritis of left knee Current Visit: Yes Status: Acute (2) S/P total knee arthroplasty Current Visit: Yes Status: Acute Hospital Course: This is a 56-year-old male with known history of degenerative arthritis of the left knee. The patient presents for evaluation. After discussion and consideration patient elects to proceed with total knee arthroplasty. The patient is seen preoperatively by Dr. Christianson and cleared for surgery. Patient is admitted to [facility] on 10/25/2016 for total knee arthroplasty. The procedures performed without complication or sequelae. The patient is doing well postoperatively. Labs and vital signs are stable on day of discharge. On day of discharge patient's knee incision is healing well. There is minimal erythema. There is minimal drainage noted at this time. There is minimal soft tissue swelling to the knee. Patient has full foot and ankle motion without difficulty or pain. Neurovascular status to the left lower extremity is intact. Patient is discharged rehab in good condition. Please see med rec for accurate list of home medications. Plan - Discharge Summary New Discharge Prescriptions: New Aspirin 325 mg PO BID #60 tab HYDROcodone/APAP 5-325MG [[place] 5-325] 1 - 2 tab PO Q4-6H PRN #90 tab PRN Reason: Pain Sennosides-Docusate Sodium [Senokot-S] 1 tab PO BID #60 tablet No Action Simvastatin [Zocor] 40 mg PO DAILY FLUoxetine HCL [PROzac] 80 mg PO DAILY Hydrochlorothiazide 25 mg PO DAILY Potassium Chloride [Klor-Con 10] 10 meq PO DAILY Cholecalciferol [Vitamin D3] 5,000 units PO DAILY Aspirin 81 mg PO DAILY Losartan Potassium [Cozaar] 100 mg PO DAILY ALPRAZolam [Xanax] 0.25 mg PO BID PRN PRN Reason: Anxiety Omeprazole [PriLOSEC] 20 mg PO AC-BRKFST Naproxen Sodium [Aleve] 220 mg PO BID PRN PRN Reason: Pain Dicyclomine [Bentyl] 20 mg PO QID PRN PRN Reason: Bloating Metoprolol Succinate [Toprol XL] 50 mg PO DAILY hydrALAZINE HCL [Apresoline] 25 mg PO BID Hydrocodone/Acetaminophen [[place] 5-325] 1 - 2 tab PO Q4HR PRN PRN Reason: pain Discharge Medication List Aspirin 81 mg PO DAILY 03/07/16 [History] Cholecalciferol [Vitamin D3] 5,000 units PO DAILY 03/07/16 [History] FLUoxetine HCL [PROzac] 80 mg PO DAILY 03/07/16 [History] Hydrochlorothiazide 25 mg PO DAILY 03/07/16 [History] Potassium Chloride [Klor-Con 10] 10 meq PO DAILY 03/07/16 [History] Simvastatin [Zocor] 40 mg PO DAILY 03/07/16 [History] ALPRAZolam [Xanax] 0.25 mg PO BID PRN 06/13/16 [History] Dicyclomine [Bentyl] 20 mg PO QID PRN 06/13/16 [History] Losartan Potassium [Cozaar] 100 mg PO DAILY 06/13/16 [History] Naproxen Sodium [Aleve] 220 mg PO BID PRN 06/13/16 [History] Omeprazole [PriLOSEC] 20 mg PO AC-BRKFST 06/13/16 [History] Metoprolol Succinate [Toprol XL] 50 mg PO DAILY 10/12/16 [History] Hydrocodone/Acetaminophen [[place] 5-325] 1 - 2 tab PO Q4HR PRN 10/25/16 [History] hydrALAZINE HCL [Apresoline] 25 mg PO BID 10/25/16 [History] Aspirin 325 mg PO BID #60 tab 10/27/16 [Rx] HYDROcodone/APAP 5-325MG [[place] 5-325] 1 - 2 tab PO Q4-6H PRN #90 tab 10/27/16 [ Rx] Sennosides-Docusate Sodium [Senokot-S] 1 tab PO BID #60 tablet 10/27/16 [Rx] Follow up Appointment(s)/Referral(s): Jim Christianson DO [Doctor of Osteopathic Medicine] - 2 Weeks Ambulatory/Diagnostic Orders: Continuous Passive Motion (CPM) Machine [DME.AMB1] Time Frame: 2 Weeks, Location : Determined By Patient Activity/Diet/Wound Care/Special Instructions: Weightbearing as tolerated with a walker CPM 5-6h daily Daily dressing changes, keep incision clean and dry May shower if no drainage from incision [facility] with questions or concerns [phone] Discharge Disposition: HOME WITH HOME HEALTH SERVICES
--- NOTE | 2016-10-27 13:24 | P.PN ---
Progress Note - Text 1020 anesthesia POD 2. Patient is status post left TKR under spinal anesthesia with a left adductor canal catheter placed for postoperative pain relief. With ropivacaine 0.2% running at 8 mL per hour the patient's VAS is (0, 2). Catheter dressing is clean dry and intact.
[2016-10-27] MEDS: MELOXICAM 7.5 MG TAB PO SCH (13:47)
[2016-10-27] MEDS: hydrALAZINE HCL 25 MG TAB PO SCH (13:48)
--- NOTE | 2016-10-27 21:56 | PN ---
PROGRESS NOTE DATE OF SERVICE: 10/27/16 INTERVAL HISTORY: This 56-year-old gentleman admitted after left knee arthroplasty is improving significantly. No chest pain. No palpitations. No fever. On exam, alert, oriented times three. Pulse 75, blood pressure 120/60, respirations 18, temperature 98.2, pulse ox 94% on room air. HEENT: Conjunctivae normal. Neck no jugular venous distention. Cardiovascular: S1, S2 muffled. Respiratory: Breath sounds diminished at the bases. No rhonchi. No crackles. Abdomen is soft, nontender. Legs: Status post surgery. Central nervous system: No focal deficits. LABS: Hemoglobin 12. ASSESSMENT: 1. Status post left hemiarthroplasty. 2. Increased WBC, possibly reactive improving. 3. History of coronary artery disease. 4. History of gastroesophageal reflux disease. 5. History of hypertension. 6. Hyperlipidemia. 7. Increased random blood sugar. 8. History of myocardial infarction. 9. History of lap band surgery and removal. 10.Anxiety, depression. RECOMMENDATIONS AND DISCUSSION: Recommend to continue current medications. Continue symptomatic treatment. I recommend fasting glucose CBC in the outpatient setting. Otherwise incentive spirometry and DVT prophylaxis. Other recommendations per Orthopedic surgery. Follow closely with primary care physician in the outpatient setting after discharge. Further recommendations to follow. MMODL / IJN: [id number] / [place]
== END 2016-10-27 15:06 | disposition home health service (06) | DRG 470 ==
LOC: 2ORMAIN 09:29 → 3SUR 15:29
PROVIDERS: ADMIT Orthopaedic Surgery; ATTEND Orthopaedic Surgery
PROC: 0SRD0J9 Replacement of Left Knee Joint with Synthetic Substitute, Cemented, Open Approach (ICD-10-PCS; principal; 2016-10-25 11:55)
DX: M17.12 Unilateral primary osteoarthritis, left knee (principal); I10 Essential (primary) hypertension; M25.762 Osteophyte, left knee; I25.10 Atherosclerotic heart disease of native coronary artery without angina pectoris; K21.9 Gastro-esophageal reflux disease without esophagitis; F41.9 Anxiety disorder, unspecified; F32.9 Major depressive disorder, single episode, unspecified; E78.5 Hyperlipidemia, unspecified; D72.829 Elevated white blood cell count, unspecified; I25.2 Old myocardial infarction; Z79.82 Long term (current) use of aspirin; Z98.84 Bariatric surgery status; Z79.899 Other long term (current) drug therapy; Z91.048 Other nonmedicinal substance allergy status; Z83.2 Family history of diseases of the blood and blood-forming organs and certain disorders involving the immune mechanism; Z80.8 Family history of malignant neoplasm of other organs or systems; Z79.891 Long term (current) use of opiate analgesic; Z87.891 Personal history of nicotine dependence; Z79.1 Long term (current) use of non-steroidal anti-inflammatories (NSAID)
CPT/HCPCS: 80048; 81003; 85025; 88300

== ENCOUNTER → 2022-06-20 | Outpatient (CLI) | payer MEDICARE ==
[2022-06-20 12:15] LABS: INR 1.1 (<1.2); Partial Thromboplastin Time 23.3 sec (22.0-30.0); Prothrombin Time 11.2 sec (9.0-12.0)
[2022-06-20 15:55] LABS: Appearance,Urine Clear (Clear); Bilirubin,Urine Small (Negative); Blood,Urine Negative (Negative); Color,Urine Dark Yellow (Yellow); Ketones,Urine 15 mg/dL (Negative); Nitrite,Urine Negative (Negative); PH, Urine 5.5 (5.0-8.0); Specific Gravity,Urine 1.032 (1.001-1.030)
[2022-06-20 16:08] LABS: African American GFR (CKD) 89.6 (60.0-200.0); Albumin 4.5 g/dL (3.8-4.9); Albumin/Globulin Ratio 1.68 (1.60-3.17); Anion Gap 10.1 mmol/L (10.00-18.00); BUN/Creat Ratio 24.51 Ratio (12.00-20.00); Calcium 10.2 mg/dL (8.7-10.3); Carbon Dioxide 26.8 mmol/L (20.0-27.5); Globulin 2.7 g/dL (1.6-3.3); Non-African American GFR(CKD) 77.3 (60.0-200.0); Potassium 5.5 mmol/L (3.5-5.5); Total Bilirubin 0.4 mg/dL (0.30-1.20); Total Protein 7.2 g/dL (6.2-8.2)
[2022-06-20 16:24] LABS: Bacteria,Urine None Seen /HPF (None Seen); Calcium Oxalate Crystals,Urine Present /LPF (None Seen)
[2022-06-20 17:57] LABS: HCT 45.7 % (39.6-50.0); HGB 14.5 g/dL (13.0-17.0); MCH 29.7 pg (27.0-32.0); MCHC 31.7 g/dL (32.0-37.0); MCV 93.6 fL (80.0-97.0); Mean Platelet Volume 12.2 fL (9.5-12.2); NRBC Per 100 WBC 0 /100 WBCS (0.0-0.0); Platelet Count 204 X 10*3/uL (140-440); RBC 4.88 X 10*6/uL (4.40-5.60); RDW 12.9 % (11.5-14.5); WBC 8.17 X 10*3/uL (4.50-10.00)
== END | disposition home or self-care (01) ==
LOC: LABPAT 10:50
PROVIDERS: ATTEND Orthopaedic Surgery
DX: Z01.812 Encounter for preprocedural laboratory examination (principal); M17.11 Unilateral primary osteoarthritis, right knee
CPT/HCPCS: 80053; 81001; 85027; 85610; 85730; 87070

== ENCOUNTER 2022-06-28 09:00 | Day surgery (SDC) | payer MEDICARE ==
[2022-06-24 13:39] VITALS: BMI 42.2
[~2022-06-28 09:00] MED LIST changes: -ACETAMINOPHEN TAB 500 MG TAB PO ONE; +ACETAMINOPHEN TAB 500 MG TAB PO PRN; -DEXAMETHASONE SOD PHOSPHATE 10 MG/ML 1 ML VIAL IV ONE; +DEXAMETHASONE SOD PHOSPHATE 4 MG/ML 1 ML VIAL IV ONE; +GABAPENTIN 300 MG CAP PO PRN; +HYDROmorphone 0.5 MG/0.5 ML SYRINGE IVP PRN; -HYDROmorphone 1 MG/ML 1 ML SYRINGE IVP PRN; -LACTATED RINGERS 1,000 ML IV SCH; +LIDOCAINE 1% (10MG/ML) FOR IV START INTRADERMA PRN; -LIDOCAINE 1% 20 ML VIAL (10MG/ML) FOR IV START INTRADERMA PRN; -MELOXICAM 7.5 MG TAB PO ONE; +MELOXICAM 7.5 MG TAB PO PRN; -ROPIVACAINE 246.25 MG, EPINEPHrine 0.5 MG, KETOROLAC 30 MG, cloNIDine HCL/PF 80 MCG, WA... MISCELLANE ONE; -SCOPOLAMINE 1.5MG/72HR PATCH TRANSDERM ONE; -TRANEXAMIC ACID 1,000 MG in SODIUM CHLORIDE 0.9% 100 ML IVPB ONE; +TRANEXAMIC ACID IN NACL,ISO-OS 1,000 MG in SALINE 1 100ML.BAG IVPB PRN; -ceFAZolin 3 GM in SODIUM CHLORIDE 0.9% 100 ML IVPB ONE; +ceFAZolin 3 GM in SODIUM CHLORIDE 0.9% 100 ML IVPB PRN; -fentaNYL (PF) 50 MCG/ML 20 ML VIAL IVP PRN
[2022-06-28] MEDS ORDERED: HYDROmorphone 0.5 MG/0.5 ML SYRINGE IVP PRN ×2 (09:15)
[2022-06-28] MEDS ORDERED: NA PHOS,M-B/NA PHOS,DI-BA 133 ML ENEMA RECTAL PRN (09:15)
[2022-06-28] MEDS ORDERED: MAGNESIUM HYDROXIDE 2,400 MG/10 ML CUP PO PRN (09:15)
[2022-06-28] MEDS ORDERED: ONDANSETRON 4 MG/2 ML VIAL IVP PRN (09:15)
[2022-06-28] MEDS ORDERED: bisacodyL 10 MG SUPP RECTAL PRN (09:15)
[2022-06-28] MEDS ORDERED: NALOXONE 0.4 MG/ML 1 ML VIAL IV PRN (09:15)
[2022-06-28] MEDS ORDERED: HYDROcodone/APAP 7.5-325MG 1 EACH TAB PO PRN (09:21)
[2022-06-28] MEDS: LACTATED RINGERS 1,000 ML IV SCH (10:24)
[2022-06-28 10:26] LABS: Glucose,Whole Blood 137 mg/dL (70-110)
[2022-06-28] MEDS ORDERED: ceFAZolin 1,000 MG in SODIUM CHLORIDE 0.9% 1,000 ML IRRIGATION ONE (11:25)
[2022-06-28] MEDS ORDERED: ROPIVACAINE 5 MG/ML 30 ML VIAL ONE (11:26)
[2022-06-28] MEDS ORDERED: PROPOFOL 10 MG/ML 20 ML VIAL IV ONE (11:26)
[2022-06-28] MEDS ORDERED: fentaNYL (PF) 50 MCG/ML 2 ML AMP ONE (11:26)
[2022-06-28] MEDS ORDERED: WATER FOR INJECTION, STERILE 10 ML VIAL IV ONE (11:26)
[2022-06-28] MEDS ORDERED: TRANEXAMIC ACID IN NACL,ISO-OS 1,000 MG/100 ML BAG ONE (11:26)
[2022-06-28] MEDS ORDERED: MIDAZOLAM 2 MG/2 ML VIAL ONE (11:26)
[2022-06-28] MEDS ORDERED: PHENYLEPHRINE-0.9% NACL SYG 1,000 MCG/10 ML SYRINGE ONE (11:26)
[2022-06-28] MEDS ORDERED: LACTATED RINGERS 1,000 ML IV ONE ×2 (12:43)
--- NOTE | 2022-06-28 12:43 | P.OP ---
Date of Procedure: 06/28/22 Preoperative Diagnosis: Severe osteoarthritis right knee Postoperative Diagnosis: Severe osteoarthritis right knee Procedure(s) Performed: Right total knee arthroplasty Implants: [employer] Journey II CR Oxinium cruciate retaining femoral component size 7, right [employer] Journey nonporous tibial baseplate size 6, right [employer] Journey II, XLPE Deep Dished articular insert, size 12 mm, Size 5-6, right [employer] Journey Tanya II resurfacing patellar component, oval, 35 mm All components were cemented using Palacos R bone cement The articulation is Oxinium on polyethylene Anesthesia: spinal Surgeon: Jim Christianson [employer] Manager #1: Ivory Rebollar Estimated Blood Loss (ml): 40 Pathology: other (Bone and cartilage) Condition: stable Disposition: PACU Indications for Procedure: The patient's knee is end-stage, and conservative management has failed. The operation of knee replacement has been discussed at length in the office, as well as potential risks and complications. These are inclusive of, but not limited to: Infection, bleeding, scarring, discomfort, stiffness, blood vessel and nerve damage, need for further surgery, failure to relieve symptoms, persistence, recurrence, or worsening of problems, loosening, dislocation, wear, blood clot, pulmonary embolism, , gait dysfunction, stiffness, and other risks as discussed in the office. Patient elects to proceed and the consent form has been signed. Operative Findings: The operative findings are consistent with severe osteoarthritis of the right knee Description of Procedure: Patient was seen in the preoperative area and the consent was reviewed and the operative site was marked with a skin marker. The patient verified the procedure and the operative site. An adductor canal pain catheter and an IPACK block were placed by anesthesia in the preoperative area. The patient was then brought to the operating room and positioned on the operating room table in the supine position. Preoperative antibiotics and a gram of transexamic acid were given intravenously. A spinal anesthetic was administered by the anesthesia department. Care was taken to make sure that all pressure points were adequately padded. A tourniquet was placed on the upper thigh and the lower extremity was prepped with ChloraPrep and draped in usual sterile fashion. A universal timeout was then performed which confirmed the patient's name, surgical site, ALLERGIES, and consent. The lower extremity was then exsanguinated and tourniquet was inflated to 250 mmHg. A standard anterior midline approach to the knee was performed. The skin and subcutaneous tissue were sharply dissected down to the patellar tendon. A medial parapatellar arthrotomy was then performed. The knee was then extended, the patellar was everted, and the knee was flexed. The infra-patellar fat pad was removed in order to enhance exposure. The anterior horns of both menisci were excised, and a release was performed to the posterior medial aspect of the knee. On gross visual inspection, there was complete loss of articular cartilage in the medial and patellofemoral joint spaces. There was also significant cartilage damage in the lateral compartment. There were multiple periarticular osteophytes globally about the knee which were then removed with a Ronguer. The femoral canal was then opened with the 9.5 mm intramedullary drill. The 8 mm intramedullary debbie was then inserted into the femoral canal with the distal femoral cutting guide set for 5 of valgus. The distal femoral cutting block was then pinned in place. The intramedullary debbie was then removed, and the distal femur was then cut. The cutting block was then removed and the cut was checked for symmetry. The resected bone was then measured to confirm the appropriate distal femoral resection. Next, the sizing guide was then placed and set for 3 external rotation based off of the epicondylar axis and Sandra's line. Pins were then placed and the drill holes, and the femur was sized with the sizing stylus. The pins were then removed, and the sizing guide was then removed. The spikes of the appropriate size femoral block was then placed into the predrilled holes, and malleted into place. Two 45 mm pins were then placed into the fixation holes on the cutting block. An kusum wing was then used to ensure there would be no notching with the anterior cut. The anterior condyles were cut without notching. The anterior chord cut was then performed, followed by the posterior cut, posterior chamfer cut, and the anterior chamfer cut. The collateral ligaments were protected during the entire process. The cutting block was then removed. Any remaining bone and osteophytes were removed from the femur with a Ronguer. Attention was then directed to the tibia. The remaining ACL was removed with a Ronguer, and the tibia was then gently subluxed forward with a large bent knee retractor. Any remaining menisci were excised. The posterior lateral corner was cauterized in order to coagulate the lateral geniculate artery. The extra medullary tibial cutting guide was then placed, set for the appropriate rotation, slope, and depth of resection. The proximal tibia cutting guide was then pinned in place. Proximal tibia was then cut and sized. A curved osteotome was then used to remove any posterior osteophytes from the distal femur. The femoral trial was placed. A narrow saw blade was then used to remove the anterior intracondylar femoral bone. The CR notch trial was then placed. The tibial trial was placed with the appropriate-sized insert. The knee was able to fully extend and flex to 130 and was stable throughout all range of motion. The knee was then extended and the patella was everted. Patella was then measured, and then using an osteotomy guide, the patella was cut at the appropriate level. The patellar component was sized. The patellar drill guide was placed and the patella was drilled. The patella trial was then placed. The knee was then taken through range of motion with the patella trial and the patella tracked normally using the no thumbs technique. The patella trial was then removed. The knee was then flexed and lug holes were drilled through the femoral trial and the femoral trial was then removed. The tibial was then re- exposed, and the tibial broach guide was then pinned in place after it was set for the appropriate rotation to allow for the most coverage without overhang. The tibia was then reamed and broached. The femoral canal was plugged with autologous bone. The cut surfaces of bone were then irrigated with pulsatile lavage. The knee was also irrigated with Irrisept solution. The components were then opened, the cement was mixed. Cement was placed on the backside of the femoral, tibial, and patellar components. Cement was then applied to the tibial surface and pressurized into the surface using finger pressurization technique. The tibial component was then applied and excess cement was removed after it was impacted securely noted to be flush with the cut surface. In similar fashion, the cement was applied to the cut femoral surface, pressurized and using finger pressurization the component was impacted in place. Excess cement was removed. The polyethylene spacer was then implanted and locked into position. Patellar component was then applied in a similar technique and the patellar clamp was used to hold patella in place while the cement hardened. The knee was held in full extension while the cement hardened. Once the cement had fully hardened, the knee was reinspected. Any other cement extrusion was removed the final range of motion testing showed range of motion from 0-130 with excellent stability, both medial and laterally and appropriate alignment of the leg. Patella tracked normally. After the cemented hardened, the tourniquet was released and hemostasis was obtained. A second gram of transexamic acid was given intravenously. The knee was again irrigated. The knee was again taken through range of motion and found to be stable throughout all range of motion of 0-130, and the patella tracked normally. The fascia was then closed with 0 Vicryl followed by #2 strata fix suture. The subcutaneous tissue was closed with 3-0 Vicryl and 3-0 strata fix. Exofin glue was used for the skin and placed with the knee in flexion. After the glue had dried, and Optafoam silver impregnated dressing was applied. A lightly compressive dressing was applied using web roll and Dio wrap. Patient was then transferred to the stretcher and taken to recovery room in stable condition. Sponge and needle counts were correct. The periodicals library assistant WADE Doe was required due the complexity surgery and the need for a skilled printer assistant. She assisted in positioning, draping, retraction, and closure of the wound.
[2022-06-28] MEDS ORDERED: HYDROmorphone 0.5 MG/0.5 ML SYRINGE IVP ONE (14:10)
[2022-06-28 14:51] LABS: Glucose,Whole Blood 112 mg/dL (70-110)
--- NOTE | 2022-06-28 14:52 | P.CONS ---
History of Present Illness - Reason for Consult Consult date: 06/28/22 Medical management Requesting physician: Jim Christianson - History of Present Illness History of Presenting Illness: Patient is a very pleasant 62-year-old male with a past medical history of CAD status post CABG 3, morbid obesity with BMI of 43.0 kg/m status post bariatric surgery with lap band, hypertension, hyperlipidemia, diabetes mellitus, hypothyroidism, anxiety, depression, and GERD. He is currently admitted under orthopedic surgery team status post right total knee arthroplasty completed secondary to severe osteoarthritis of right knee. We were consulted for medical management throughout patient's hospitalization. Patient seen and fully evaluated at bedside. Patient reports moderate postoperative pain to right knee at this time. Patient denies having any postoperative nausea or vomiting, headache, lightheadedness, dizziness, chest pain, palpitations, shortness of breath, or experiencing any numbness/tingling sensation in his extremities. Review of systems: Pertinent positives and negatives as discussed in HPI, a complete review of systems was performed and all other systems are negative. Physical exam: Vital signs reviewed and stable. General: Nontoxic, no distress and appears stated age. Obese. Derm: Skin warm and dry, normal coloration for ethnicity. Postoperative dressings/Dio dressing in place to right lower extremity. Head: Atraumatic, normocephalic and symmetric. Eyes: EOMs intact, no lid lag, and anicteric sclera Mouth: no lip lesions, mucus membranes moist Cardiovascular: regular rate and rhythm with normal S1S2, no murmur, positive posterior tibial pulses bilaterally, and cap refill < 2 seconds. Lungs: Respirations even, regular, and unlabored on room air. Lungs CTA bilaterally, no rhonchi, no rales, no wheezing, and no accessory muscle usage. Abdominal: soft, nontender to palpation, no guarding, no appreciable organomegaly Ext: ROM intact. No gross muscle atrophy, no edema, no contractures Neuro: Speech clear, face symmetrical and CN II-XII grossly intact with no noted focal neuro deficits Psych: Alert and oriented to person, place, time, and situation. Appropriate and pleasant affect. Assessment and Plan of Care: Status post right total knee arthroplasty Severe osteoarthritis -Management per primary admitting orthopedic surgery team including DVT prophylaxis, pain management, wound/dressing care, weightbearing, and PT/OT. -Patient currently on DVT prophylaxis with aspirin 325 mg twice a day. -Order placed for postoperative CBC and BMP and we will follow up on these results and place additional orders as indicated. History of CAD status post CABG 3 Hypertension Hyperlipidemia Type II [id number] diabetes mellitus -Home medications reviewed and reordered at this time. Patient to continue with amlodipine 10 mg daily, carvedilol 25 mg twice daily, duloxetine 30 mg daily, Cozaar 100 mg daily, and rosuvastatin 20 mg daily. -Order placed for hemoglobin A1c. Metformin held at this time and patient placed on glycemic protocol with NovoLog sliding scale to maintain tight glycemic control throughout hospitalization. Morbid obesity with BMI of 43.0 kg/m -Recommend outpatient structured weight management program. Thank you for allowing us to participate in the care of this pleasant patient. Do not hesitate to contact us with questions. Someone can be reached from the [facility] hospitalist group all hours of the day at [phone] or via [employer]. Patient was seen independently by Nurse Practitioner. This document was prepared using [employer] dictation software. Please allow for errors in embedded software design engineer while rare they do occur. Past Medical History Past Medical History: Coronary Artery Disease (CAD), Diabetes Mellitus, GERD/Reflux, Hyperlipidemia, Hypertension, Liver Disease, Myocardial Infarction (non Q-wave), Osteoarthritis (OA), Thyroid Disorder Additional Past Medical History / Comment(s): Acid reflux resolved since lap band removed. Fatty liver. Thyroid nodules, monitored with yearly ultrasounds. Last Myocardial Infarction Date:: 1997 History of Any Multi-Drug Resistant Organisms: None Reported Past Surgical History: Bariatric Surgery, Heart Catheterization, Hernia Repair Additional Past Surgical History / Comment(s): Lap band 2003, umbilical hernia repair 2004, lap band removed 2016, triple bypass 01/02/17, right carotid artery "cleaned out" 08/2020, right inguinal hernia repair. Past Anesthesia/Blood Transfusion Reactions: Motion Sickness Additional Past Anesthesia/Blood Transfusion Reaction / Comm: STATES VERY ANXIOUS WHEN HE COMES FOR SURGERY- LEFT HOSPITAL PRIOR TO SURGERY DUE TO ANXIETY. Past Psychological History: Anxiety, Depression Additional Psychological History / Comment(s): "No issues with depression in a long time". Smoking Status: Never smoker Past Alcohol Use History: Rare Additional Past Alcohol Use History / Comment(s): Very rare alcohol use. Past Drug Use History: Marijuana Additional Drug Use History / Comment(s): Marijuana use "once in a blue orozco". Aware no use 24 hrs prior to procedure. - Past Family History Father Family Medical History: Cancer, Deep Vein Thrombosis (DVT) Additional Family Medical History / Comment(s): MESOTHELIOMA Medications and Allergies Home Medications Medication Instructions Recorded Confirmed Type Losartan Potassium [Cozaar] 100 mg PO QAM 06/13/16 06/24/22 History HYDROcodone/APAP 5-325MG [[place] 1 - 2 tab PO Q4-6H PRN #90 tab 10/27/16 06/24/22 Rx 5-325] Aspirin [Adult Low Dose Aspirin EC] 81 mg PO DAILY 06/24/22 06/24/22 History DULoxetine HCL [Cymbalta] 30 mg PO QAM 06/24/22 06/24/22 History Exenatide Microspheres [Bydureon 2 mg SQ ISBELL 06/24/22 06/24/22 History Bcise Auto-Injector] Ibuprofen 800 mg PO Q8H PRN 06/24/22 06/24/22 History Nitroglycerin Sl Tabs [Nitrostat] 0.4 mg SUBLINGUAL Q5M PRN 06/24/22 06/24/22 History Rosuvastatin [Crestor] 20 mg PO DAILY 06/24/22 06/24/22 History amLODIPine [Norvasc] 10 mg PO QAM 06/24/22 06/24/22 History carvediloL 25 mg PO BID 06/24/22 06/24/22 History metFORMIN HCL [Glucophage] 1,000 mg PO BID 06/24/22 06/24/22 History Aspirin 325 mg PO BID #60 tab 06/28/22 Rx HYDROcodone/APAP 7.5-325MG [[place] 1 - 2 tab PO Q6H PRN #32 tab 06/28/22 Rx 7.5-325] Sennosides [Senokot] 2 tab PO DAILY PRN #60 tablet 06/28/22 Rx Allergies Allergy/AdvReac Type Severity Reaction Status Date / Time adhesive tape Allergy Rash/Hives Verified 06/24/22 13:13 tamsulosin Allergy Hypotension Verified 06/24/22 13:40 Physical Exam Vitals: Vital Signs Temp Pulse Resp BP Pulse Ox 06/28/22 14:32 56 L 20 135/79 99 06/28/22 13:57 61 16 140/80 100 06/28/22 13:42 62 16 122/74 95 06/28/22 13:26 61 20 109/72 94 L 06/28/22 13:10 98.0 F 75 16 87/67 90 L 06/28/22 11:20 73 15 131/70 99 06/28/22 11:05 70 14 121/70 97 06/28/22 11:00 72 15 132/71 97 06/28/22 10:21 97.1 F L 71 14 146/77 97 Intake and Output 06/27/22 06/28/22 06/28/22 22:59 06:59 14:59 Intake Total 1101 Output Total 40 Balance 1061 Intake: IV 1101 Output: Estimated Blood Loss 40 Other: Weight 134.1 kg Results Labs: Abnormal Lab Results - Last 24 Hours (Table) 06/28/22 Range/Units 10:19 POC Glucose (mg/dL) 137 H (70-110) mg/dL
--- NOTE | 2022-06-28 15:41 | XR ---
EXAMINATION TYPE: XR knee limited RT DATE OF EXAM: 06/28/2022 COMPARISON: None HISTORY: Postknee replacement TECHNIQUE: 2 view right knee FINDINGS: Tibial and femoral components of the place. No acute fractures or dislocations are noted. P ostsurgical soft tissue changes are evident. IMPRESSION: 1. No acute fractures post right knee replacement
[2022-06-28] MEDS: SODIUM CHLORIDE 0.9% 1,000 ML IV SCH (16:02)
[2022-06-28] MEDS: HYDROmorphone 1 MG/ML 1 ML SYRINGE IVP PRN (16:07)
[2022-06-28 16:46] LABS: Glucose,Whole Blood 169 mg/dL (70-110)
[2022-06-28] MEDS: HYDROcodone/APAP 7.5-325MG 1 EACH TAB PO PRN (17:39)
[2022-06-28] MEDS ORDERED: DEXTROSE 50% SYRINGE 50 ML IVP PRN ×2 (19:01)
[2022-06-28 20:13] LABS: Glucose,Whole Blood 197 mg/dL (70-110)
[2022-06-28] MEDS: ASPIRIN 325 MG TAB PO SCH (20:58)
[2022-06-28] MEDS: INSULIN ASPART (NovoLOG) 100 UNIT/ML VIAL SQ SCH (20:58)
[2022-06-28] MEDS: carvediloL 12.5 MG TAB PO SCH (20:58)
[2022-06-28] MEDS: ceFAZolin 3 GM in SODIUM CHLORIDE 0.9% 100 ML IVPB SCH (20:59)
[2022-06-28] MEDS ORDERED: SENNOSIDES-DOCUSATE SODIUM 1 EACH TAB PO SCH (21:00)
--- NOTE | 2022-06-28 22:51 | P.ANPRN ---
Procedure Note - Anesthesia - Nerve Block Performed Right Adductor Canal Infusion Date of Procedure: 06/28/22 Procedure Start Time: 09:45 Procedure Stop Time: :50 Location of Patient: PreOp Indication: Acute Post-Operative Pain, Requested by Surgeon Sedation Type: Sedate with meaningful contact maintained Preparation: Sterile Prep Position: Supine Needle Types: Pajunk Needle Gauge: 20 Ultrasound used to visualize needle placement: Yes Ultrasound used to observe medication spread: Yes Injectate: 0.5% Ropivacaine (see comment for volume) (15mL) Blood Aspirated: No Pain Paresthesia on Injection Noted: No Resistance on Injection: Normal Image Stored and Saved: Yes Events: Uneventful and Well Tolerated Right iPack Single Date of Procedure: 06/28/22 Procedure Start Time: :50 Procedure Stop Time: :55 Location of Patient: PreOp Indication: Acute Post-Operative Pain, Requested by Surgeon Sedation Type: Sedate with meaningful contact maintained Preparation: Sterile Prep Position: Supine Needle Types: Pajunk Needle Gauge: 20 Ultrasound used to visualize needle placement: Yes Ultrasound used to observe medication spread: Yes Injectate: 0.5% Ropivacaine (see comment for volume) (15mL) Blood Aspirated: No Pain Paresthesia on Injection Noted: No Resistance on Injection: Normal Image Stored and Saved: Yes Events: Uneventful and Well Tolerated
[2022-06-29] MEDS: SODIUM CHLORIDE 0.9% 1,000 ML IV SCH (00:32)
[2022-06-29] MEDS: HYDROmorphone 1 MG/ML 1 ML SYRINGE IVP PRN (02:21)
[2022-06-29] MEDS: ceFAZolin 3 GM in SODIUM CHLORIDE 0.9% 100 ML IVPB SCH (05:10)
[2022-06-29] MEDS: LACTATED RINGERS 1,000 ML IV SCH (05:14)
[2022-06-29 05:41] LABS: Glucose,Whole Blood 142 mg/dL (70-110)
[2022-06-29] MEDS: INSULIN ASPART (NovoLOG) 100 UNIT/ML VIAL SQ SCH (05:44)
--- NOTE | 2022-06-29 07:02 | P.PN ---
Progress Note - Text Progress Note Date: 06/29/22 Anesthesia progress note: POD#[address] right total knee with Dr. Eugene. Adductor canac nerve block catheter in place. Patient states pain is 3/10. Patient states he has been up and walking down the halls with tolerable pain. Patient denies headache, lightheadeness, dizziness, ringing in ears or numbness in the mouth.
--- NOTE | 2022-06-29 07:48 | P.DS ---
Providers Expected date of discharge: 06/29/22 Attending physician: Jim Christianson Consults: 06/28/22 09:15 Consult Physician Routine Consulting Provider: Pallavi Treviño Consult Reason/Comments: medical management Do you want consulting provider notified?: Yes Primary care physician: Stated None - Discharge Diagnosis(es) (1) Primary localized osteoarthritis of right knee Current Visit: Yes Status: Acute (2) Status post total right knee replacement Current Visit: Yes Status: Acute Hospital Course: This is a 62-year-old male who was last seen with complaint of continued right knee pain. The patient has a known history of degenerative arthritis of the right knee and presents to discuss surgical options. After discussion and consideration the patient elects to proceed with total right knee arthroplasty. The patient is seen preoperatively by his primary care physician and cleared for surgery. The patient is admitted to [facility] for total right knee arthroplasty. The procedures performed without complication or sequelae. Tania ent is doing well postoperatively. Vital signs are stable at discharge. Labs are stable at discharge. the patient is ambulating well with walker with minimal assistance. The patient is discharged to home on postop day #1 pending medical clearance. Please see orders and refer to the med rec for accurate list of medications. Patient Condition at Discharge: Good Plan - Discharge Summary Discharge Rx Participant: Yes New Discharge Prescriptions: New Aspirin 325 mg PO BID #60 tab HYDROcodone/APAP 7.5-325MG [[place] 7.5-325] 1 - 2 tab PO Q6H PRN #32 tab PRN Reason: Pain Sennosides [Senokot] 2 tab PO DAILY PRN #60 tablet PRN Reason: Constipation No Action Losartan Potassium [Cozaar] 100 mg PO QAM HYDROcodone/APAP 5-325MG [[place] 5-325] 1 - 2 tab PO Q4-6H PRN #90 tab PRN Reason: Pain amLODIPine [Norvasc] 10 mg PO QAM Exenatide Microspheres [Bydureon Bcise Auto-Injector] 2 mg SQ ISBELL DULoxetine HCL [Cymbalta] 30 mg PO QAM carvediloL 25 mg PO BID metFORMIN HCL [Glucophage] 1,000 mg PO BID Nitroglycerin Sl Tabs [Nitrostat] 0.4 mg SUBLINGUAL Q5M PRN PRN Reason: Chest Pain Ibuprofen 800 mg PO Q8H PRN PRN Reason: Pain Rosuvastatin [Crestor] 20 mg PO DAILY Aspirin [Adult Low Dose Aspirin EC] 81 mg PO DAILY Discharge Medication List Losartan Potassium [Cozaar] 100 mg PO QAM 06/13/16 [History] HYDROcodone/APAP 5-325MG [[place] 5-325] 1 - 2 tab PO Q4-6H PRN #90 tab 10/27/16 [Rx] Aspirin [Adult Low Dose Aspirin EC] 81 mg PO DAILY 06/24/22 [History] DULoxetine HCL [Cymbalta] 30 mg PO QAM 06/24/22 [History] Exenatide Microspheres [Bydureon Bcise Auto-Injector] 2 mg SQ ISBELL 06/24/22 [Histo ry] Ibuprofen 800 mg PO Q8H PRN 06/24/22 [History] Nitroglycerin Sl Tabs [Nitrostat] 0.4 mg SUBLINGUAL Q5M PRN 06/24/22 [History] Rosuvastatin [Crestor] 20 mg PO DAILY 06/24/22 [History] amLODIPine [Norvasc] 10 mg PO QAM 06/24/22 [History] carvediloL 25 mg PO BID 06/24/22 [History] metFORMIN HCL [Glucophage] 1,000 mg PO BID 06/24/22 [History] Aspirin 325 mg PO BID #60 tab 06/28/22 [Rx] HYDROcodone/APAP 7.5-325MG [[place] 7.5-325] 1 - 2 tab PO Q6H PRN #32 tab 06/28/22 [Rx] Sennosides [Senokot] 2 tab PO DAILY PRN #60 tablet 06/28/22 [Rx] Follow up Appointment(s)/Referral(s): Jim Christianson DO [Doctor of Osteopathic Medicine] - 2 Weeks Activity/Diet/Wound Care/Special Instructions: Weightbearing as tolerated with a walker. CPM 5-6h daily as tolerated. Leave dressing intact. Dressing may be removed by home care nurse or by patient in 7 days. Then change dressing twice daily until follow up. May shower with initial dressing intact and after removal. If dressing become saturated, please remove. Recommend use of compression stockings daily until follow up to help prevent swelling and blood clots. May remove at night before sleeping. Please take aspirin 325mg twice daily for 30 days to prevent blood clots. Please follow up with [facility] and call with any questions or concerns, .
[2022-06-29 08:12] VITALS: BP 132/67; PULSE 78; RESP 20; TEMP 98.3
[2022-06-29] MEDS: carvediloL 12.5 MG TAB PO SCH (08:49)
[2022-06-29] MEDS: ASPIRIN 325 MG TAB PO SCH (08:49)
[2022-06-29] MEDS ORDERED: LOSARTAN 50 MG TAB PO SCH (09:00)
[2022-06-29] MEDS ORDERED: ATORVASTATIN 40 MG TAB PO SCH (09:00)
[2022-06-29] MEDS ORDERED: DULoxetine HCL 30 MG CAPSULE.DR PO SCH (09:00)
[2022-06-29] MEDS ORDERED: amLODIPine 10 MG TAB PO SCH (09:00)
--- NOTE | 2022-06-29 09:34 | P.PN ---
Subjective Progress Note Date: 06/29/22 Hospital course: Patient is a very pleasant 62-year-old male with a past medical history of CAD status post CABG 3, morbid obesity with BMI of 43.0 kg/m status post bariatric surgery with lap band, hypertension, hyperlipidemia, diabetes mellitus, hypothyroidism, anxiety, depression, and GERD. He is currently admitted under orthopedic surgery team status post right total knee arthroplasty completed secondary to severe osteoarthritis of right knee. We were consulted for medical management throughout patient's hospitalization. Physical exam: Vital signs reviewed and stable. General: Nontoxic, no distress and appears stated age. Obese. Derm: Skin warm and dry, normal coloration for ethnicity. Postoperative dressings/Dio dressing in place to right lower extremity. Head: Atraumatic, normocephalic and symmetric. Eyes: EOMs intact, no lid lag, and anicteric sclera Mouth: no lip lesions, mucus membranes moist Cardiovascular: regular rate and rhythm with normal S1S2, no murmur, positive posterior tibial pulses bilaterally, and cap refill < 2 seconds. Lungs: Respirations even, regular, and unlabored on room air. Lungs CTA bilaterally, no rhonchi, no rales, no wheezing, and no accessory muscle usage. Abdominal: soft, nontender to palpation, no guarding, no appreciable organomegaly Ext: ROM intact. No gross muscle atrophy, no edema, no contractures Neuro: Speech clear, face symmetrical and CN II-XII grossly intact with no noted focal neuro deficits Psych: Alert and oriented to person, place, time, and situation. Appropriate and pleasant affect. Assessment and Plan of Care: Acute postoperative blood loss anemia, expected finding Leukocytosis, reactive secondary to surgical procedure -Postoperative Labs reviewed. CBC showing mild leukocytosis with WBC count of 14.84 and stable postoperative hemoglobin of 11.7 with previous preoperative hemoglobin of 14.5. Hemoglobin A1c was 6.8%. -No need for further orders at this time his hemoglobin and leukocytosis is stable and expected finding. Hemoglobin A1c was 6.8% recommend patient continue metformin 1000 mg twice daily and encourage heart healthy and carb consistent diet. Status post right total knee arthroplasty Severe osteoarthritis -Management per primary admitting orthopedic surgery team including DVT prophylaxis, pain management, wound/dressing care, weightbearing, and PT/OT. -Patient currently on DVT prophylaxis with aspirin 325 mg twice a day. History of CAD status post CABG 3 Hypertension Hyperlipidemia Type II xyg-[id number] diabetes mellitus -Recommend patient to continue with amlodipine 10 mg daily, carvedilol 25 mg twice daily, duloxetine 30 mg daily, Cozaar 100 mg daily, and rosuvastatin 20 mg daily. Morbid obesity with BMI of 43.0 kg/m -Recommend outpatient structured weight management program. Medically, patient stable for discharge with no further recommendations at this time. Home medication med reconciliation completed. Patient to be discharged o nce cleared by primary admitting orthopedic surgery team. Recommend patient to continue with home daily medication regimen with metformin 1000 mg twice daily, amlodipine 10 mg daily, carvedilol 25 mg twice daily, duloxetine 30 mg daily, Cozaar 100 mg daily, and rosuvastatin 20 mg daily. Thank you for allowing us to participate in the care of this pleasant patient. Do not hesitate to contact us with questions. Someone can be reached from the [facility] hospitalist group all hours of the day at [phone] or via [employer]. Patient was seen independently by Nurse Practitioner. This document was prepared using [employer] dictation software. Please allow for errors in [employer] machine feeder while rare they do occur. Objective - Vital Signs Vital signs: Vital Signs Temp 98.3 F 06/29/22 07:19 Pulse 78 06/29/22 07:19 Resp 20 06/29/22 07:19 BP 132/67 06/29/22 07:19 Pulse Ox 97 06/29/22 07:19 FiO2 Intake & Output 06/28/22 06/29/22 06/29/22 18:59 06:59 18:59 Intake Total 2261 480 236 Output Total 40 Balance 2221 480 236 Weight 134.1 kg Intake: IV 1601 Intake, IV Titration 660 Amount Sodium Chloride 0.9% 1, 560 000 ml @ 70 mls/hr IV . [id number] HERMELINDA Rx#:[id number] ceFAZolin 3 gm In Sodium 100 Chloride 0.9% 100 ml @ 200 mls/hr IVPB Q8H HERMELINDA Rx#:[id number] Oral 480 236 Output: Estimated Blood Loss 40 Other: Voiding Method Toilet # Voids 2 - Labs CBC & Chem 7: 06/29/22 06:26 06/29/22 06:26 Labs: Abnormal Lab Results - Last 24 Hours (Table) 06/28/22 06/28/22 06/28/22 Range/Units 10:19 14:49 16:44 POC Glucose (mg/dL) 137 H 112 H 169 H (70-110) mg/dL 06/28/22 06/29/22 Range/Units 20:11 05:39 POC Glucose (mg/dL) 197 H 142 H (70-110) mg/dL
[2022-06-29] MEDS: HYDROcodone/APAP 7.5-325MG 1 EACH TAB PO PRN (09:37)
[2022-06-29 11:29] LABS: African American GFR (CKD) 91.8 (60.0-200.0); Anion Gap 8.8 mmol/L (10.00-18.00); BUN/Creat Ratio 24.6 Ratio (12.00-20.00); Blood Urea Nitrogen 24.6 mg/dL (9.0-27.0); Calcium 8.9 mg/dL (8.7-10.3); Carbon Dioxide 25.2 mmol/L (20.0-27.5); Non-African American GFR(CKD) 79.2 (60.0-200.0); Potassium 4.3 mmol/L (3.5-5.5)
[2022-06-29 12:12] LABS: HCT 35.9 % (39.6-50.0); HGB 11.7 g/dL (13.0-17.0); MCH 30.2 pg (27.0-32.0); MCHC 32.6 g/dL (32.0-37.0); MCV 92.8 fL (80.0-97.0); Mean Platelet Volume 12.1 fL (9.5-12.2); NRBC Per 100 WBC 0 /100 WBCS (0.0-0.0); Platelet Count 171 X 10*3/uL (140-440); RBC 3.87 X 10*6/uL (4.40-5.60); RDW 13.2 % (11.5-14.5); WBC 14.84 X 10*3/uL (4.50-10.00)
[2022-06-29 13:05] LABS: Basophils # (A) 0.02 X 10*3/uL (0.00-0.10); Basophils % (A) 0.1 %; Eosinophils # (A) 0.01 X 10*3/uL (0.04-0.35); Eosinophils % (A) 0.1 %; Immature Grans, Automated 0.5 %; Lymphocytes # (A) 1.54 X 10*3/uL (0.90-5.00); Lymphocytes % (A) 10.4 %; Monocytes # (A) 2.01 X 10*3/uL (0.20-1.00); Monocytes % (A) 13.5 %; Neutrophils # (A) 11.19 X 10*3/uL (1.80-7.70); Neutrophils % (A) 75.4 %
[2022-06-29 13:06] LABS: RBC Morphology NORMAL
== END 2022-06-29 10:01 | disposition home or self-care (01) ==
LOC: OR 09:00 → 4SSUR 13:10 → OR 06-29 10:01
PROVIDERS: ATTEND Orthopaedic Surgery
DX: M17.11 Unilateral primary osteoarthritis, right knee (principal); M25.761 Osteophyte, right knee; I10 Essential (primary) hypertension; E78.5 Hyperlipidemia, unspecified; I45.4 Nonspecific intraventricular block; Z79.899 Other long term (current) drug therapy; Z86.59 Personal history of other mental and behavioral disorders
CPT/HCPCS: 27447; 97161; 64999; 64448; 80048; 85025; 88300; 83036; 73560; C1713; C1776; C1751; J2250; J1100; J0690 ×3; J2405; J3010; J1170 ×3; J2795; J2370; J2704